=== PATIENT | male | born 1990 | race Caucasian/White ===

== ENCOUNTER 2017-06-24 12:51 | Emergency (ER) | payer MEDICAID ==
[~2017-06-24] VITALS: Ht 157.5 cm; Wt 100.2 kg
[2017-06-24 12:54] VITALS: Ht 157.5 cm; Wt 100.2 kg
[2017-06-24] MEDS ORDERED: IBUPROFEN 800 MG TAB PO ONE (15:00)
--- NOTE | 2017-06-24 15:12 | RADRPT ---
PROCEDURE: XR Ankle. CLINICAL INDICATION: Left ankle pain TECHNIQUE: 3 views of the left ankle were performed. COMPARISON: None. FINDINGS: There is no evidence of acute fracture. Alignment is normal. Joint spaces are preserved. There is severe diffuse soft tissue swelling. IMPRESSION: 1. No radiographic evidence of acute osseous abnormality. 2. Severe diffuse soft tissue swelling. RPTAT: UU .Higinio Durand MD, MD Date Time Electronically viewed and signed by .Higinio Durand MD, on 06/24/2017 15:11 .K/
--- NOTE | 2017-06-24 15:22 | RADRPT ---
PROCEDURE: XR bilateral Ankle. CLINICAL INDICATION: Pain TECHNIQUE: AP, oblique and lateral views of the bilateral ankles were performed. COMPARISON: None. FINDINGS: There is normal mineralization and alignment. Small osseous fragments at the posterior left talus may reflect sequelae of trauma. The joints are normal. There is soft tissue swelling lateral to lateral malleoli bilaterally. Additional swelling about the medial malleolus at the left ankle. RPTAT: KK IMPRESSION: Soft tissue swelling lateral to the lateral malleolus bilaterally and about the medial malleolus at the left ankle. No displaced fracture. Physician Demond Date Time Electronically viewed and signed by Physician Demond on 06/24/2017 15:22 DC/
[2017-06-24] MEDS ORDERED: IBUP800T25 PO (15:29)
--- NOTE | 2017-06-24 15:39 | ERD ---
ER Documentation Chief Complaint Chief Complaint Complains of left ankle pain after a fall rock climbing HPI 7-year-old male complaining of left ankle pain after falling yesterday while rock climbing. Patient took ibuprofen. He is concerned about possible fracture and is presenting for x-rays today. He denies numbness or tingling. Has pain with ambulation. No knee pain. Medical history: Depression currently taking SSRI. NKDA. Surgical history: Denies. Up-to-date on vaccinations ROS All systems reviewed and are negative except as per history of present illness. Medications Home Meds Active Scripts Ibuprofen* (Motrin*) 800 Mg Tab, 800 MG PO Q6, #30 TAB Prov:LUIGI PADILLA PA-C 06/24/17 Allergies Allergies: Coded Allergies: No Known Allergy (Unverified , 06/24/17) PMhx/Soc Medical and Surgical Hx: pt denies Medical Hx, pt denies Surgical Hx Hx Alcohol Use: No Hx Substance Use: No Hx Tobacco Use: No Smoking Status: Never smoker Physical Exam Vitals Vital Signs Date Time Temp Pulse Resp B/P Pulse Ox O2 Delivery O2 Flow Rate FiO2 06/24/17 12:54 99.0 107 20 126/78 99 Physical Exam GENERAL: The patient is well-appearing, well-nourished, in no acute distress CHEST: Clear to auscultation bilaterally. There are no rales, wheezes or rhonchi. HEART: Regular rate and rhythm. No murmurs, clicks, rubs or gallops. No S3 or S4. EXTREMITIES: Tender to palpation to bilateral medial and lateral malleolus. No obvious deformities. Swelling noted to bilateral ankles. Normal range of motion with mild tenderness to palpation. Neurovascularly intact. Compartments soft. Pulses intact. Sensation intact to distal extremities. NEUROLOGIC: Alert and oriented. Cranial nerves II through XII intact. Motor strength in all 4 extremities with 5 out of 5 strength. Sensation grossly intact. Normal speech and gait. Babinski negative. DTR 2+ throughout. SKIN: There is no apparent rash or petechiae. The skin is warm and dry. Results 24 hrs Current Medications Medications (Trade) Dose Ordered Sig/Hema Route PRN Reason Start Time Stop Time Status Last Admin Dose Admin Ibuprofen (Motrin) 800 mg ONCE ONCE PO 06/24/17 15:00 06/24/17 15:01 DC 06/24/17 14:55 Procedures/MDM DIAGNOSTIC IMAGING REPORT Patient: GRIFFIN BUNN : 1990 Age: 27 Sex: M MR #: [id number] DOS: 06/24/17 1433 Ordering MD: KIZZY PADILLA PA-C Location: [facility] Room/Bed: PROCEDURE: XR bilateral Ankle. CLINICAL INDICATION: Pain TECHNIQUE: AP, oblique and lateral views of the bilateral ankles were performed. COMPARISON: None. FINDINGS: There is normal mineralization and alignment. Small osseous fragments at the posterior left talus may reflect sequelae of trauma. The joints are normal. There is soft tissue swelling lateral to lateral malleoli bilaterally. Additional swelling about the medial malleolus at the left ankle. RPTAT: KK IMPRESSION: Soft tissue swelling lateral to the lateral malleolus bilaterally and about the medial malleolus at the left ankle. No displaced fracture. DIAGNOSTIC IMAGING REPORT Patient: GRIFFIN BUNN : 1990 Age: 27 Sex: M MR #: [id number] DOS: 06/24/17 1433 Ordering MD: KIZZY PADILLA PA-C Location: [facility] Room/Bed: PROCEDURE: XR Ankle. CLINICAL INDICATION: Left ankle pain TECHNIQUE: 3 views of the left ankle were performed. COMPARISON: None. FINDINGS: There is no evidence of acute fracture. Alignment is normal. Joint spaces are preserved. There is severe diffuse soft tissue swelling. IMPRESSION: 1. No radiographic evidence of acute osseous abnormality. 2. Severe diffuse soft tissue swelling. Ted wrap applied in ED MDM: 27-year-old male presenting with bilateral ankle pain. I have low suspicion for acute fractures or dislocations. Patient sustained sprains to bilateral ankles. Do not feel there is indication for splinting or nonbearing activities. She is discharged with pain medication and recommended to follow- up with PMD within 1-2 days for close evaluation. Patient will follow up with primary doctor within 1-2 days for close evaluation. All questions answered at discharge. Departure Diagnosis: Primary Impression: Ankle injury Condition: Stable Patient Instructions: Treating Ankle Sprains Referrals: [facility] YOU HAVE RECEIVED A MEDICAL SCREENING EXAM AND THE RESULTS INDICATE THAT YOU DO NOT HAVE A CONDITION THAT REQUIRES URGENT TREATMENT IN THE EMERGENCY DEPARTMENT. FURTHER EVALUATION AND TREATMENT OF YOUR CONDITION CAN WAIT UNTIL YOU ARE SEEN IN YOUR DOCTORS OFFICE WITHIN THE NEXT 1-2 DAYS. IT IS YOUR RESPONSIBILITY TO MAKE AN APPOINTMENT FOR FOLOW-UP CARE. IF YOU HAVE A PRIMARY DOCTOR --you should call your primary doctor and schedule an appointment IF YOU DO NOT HAVE A PRIMARY DOCTOR YOU CAN CALL OUR PHYSICIAN REFERRAL HOTLINE AT IF YOU CAN NOT AFFORD TO SEE A PHYSICIAN YOU CAN CHOSE FROM THE FOLLOWING [facility] [address] [facility] [address] [facility] [address] [facility] [address] [facility] [address] [facility] [facility]. [address] Additional Instructions: FOLLOW UP WITH YOUR PRIMARY CARE PHYSICIAN TOMORROW.Return to this facility if you are not improving as expected. LUIGI PADILLA PA-C Jun 24, 2017 15:39
== END 2017-06-24 16:30 | disposition home or self-care (01) ==
LOC: FTE 12:51
DX: S99.911A Unspecified injury of right ankle, initial encounter (principal); S99.912A Unspecified injury of left ankle, initial encounter; W18.39XA Other fall on same level, initial encounter; Y92.9 Unspecified place or not applicable
CPT/HCPCS: 73610; Z7502; Z7610